=== PATIENT | male | born 1965 | race Caucasian/White ===

== ENCOUNTER 2024-06-02 09:15 | Day surgery (SDC) | payer BC ==
--- NOTE | 2024-06-01 17:25 | HP ---
HISTORY OF PRESENT ILLNESS: No prior colonoscopy. No bloody stools. No change in bowel habits noted. No pain. Family history negative for colon cancer. PAST MEDICAL HISTORY: Hypertension. HOME MEDICATIONS: Lisinopril. ALLERGIES: No known drug allergies. PAST SURGICAL HISTORY: Tonsillectomy and rotator cuff. Knee arthroplasty in the past. SOCIAL HISTORY: No smoking or alcohol abuse. FAMILY HISTORY: Diabetes, heart disease, bladder cancer. Negative for colon cancer. REVIEW OF SYSTEMS: Twelve systems reviewed. No chest pain or palpitations. Other systems negative or noncontributory as above and per preadmission questionnaire. PHYSICAL EXAMINATION: GENERAL: Height 6 feet. BMI of 31.19. HEENT: Sclerae anicteric. Extraocular movements intact. NECK: No JVD. CHEST: Equal excursion, nonlabored breathing. CARDIOVASCULAR: Regular rate and rhythm. ABDOMEN: Soft. SKIN: Dry. EXTREMITIES: No cyanosis or edema. NEUROLOGIC: Alert, moving all extremities symmetrically. PSYCHIATRIC: Appropriate mood and affect. RECTAL: Deferred until time of endoscopy exam. IMPRESSION: A 58-year-old needs screening colonoscopy. Feel he is a candidate. He was shown the risk sheet. Explained the procedure in detail but not limited to bleeding, infection, risk of bowel injury or perforation, risk of missed or nondiagnosis or incomplete exam possibly requiring barium enema or other studies or procedures, risk of anesthesia, sedation, risk of bowel prep, not limited to. Consent was obtained. We will proceed with screening colonoscopy as an outpatient under MAC anesthesia. Otherwise, continue medications for his hypertension.
[2024-06-02] MEDS ORDERED: Lactated Ringers 1,000 ML IV ONE (09:27)
[2024-06-02] MEDS: Lactated Ringers 1,000 ML IV SCH (09:31)
[2024-06-02 10:07] LABS: ANION GAP 19.3 MEQ/L (5-15); Calcium 8.9 mg/dL (8.4-10.2); Creatinine 1 0.9 mg/dL (0.66-1.25); EST GLOMERULAR FILTRATION RATE 98.4 ML/MIN; Potassium 4.4 mmol/L (3.5-5.1)
[2024-06-02] MEDS ORDERED: Xylocaine-Mpf 2% 5 Ml Vial ONE (11:56)
[2024-06-02] MEDS ORDERED: propofoL IV ONE ×2 (11:56→12:07)
[2024-06-02] MEDS ORDERED: Versed 2 MG/2 ML Injection ONE (11:56)
[2024-06-02 13:10] VITALS: BP 123/85; PULSE 73; RESP 18; TEMP 97; O2SAT 96
--- NOTE | 2024-06-03 11:34 | OP ---
SURGERY DATE/TIME: 06/02/2024 [id number] PREOPERATIVE DIAGNOSES: 1) Need for screening colonoscopy. 2) ASA class 2. POSTOPERATIVE DIAGNOSES: 1) Fair prep. 2) Diverticulosis. 3) Small rectal polyp. 4) Tortuous colon. 5) Withdrawal time was approximately 9 minutes. PROCEDURES: 1) Colonoscopy to the cecum. 2) Hot biopsy of small rectal polyp versus hyperplastic lesion. SURGEON: Ez Ervin MD BUSINESS EDITOR: Brad Suresh MS3 ESTIMATED BLOOD LOSS: Minimal. INDICATIONS: As noted above. The risks and benefits were explained in detail, not limited to. Consent obtained. DESCRIPTION OF PROCEDURE AND FINDINGS: The patient was taken to the operating room. MAC anesthesia was introduced. After official time-out and no disagreement with planned procedure, digital rectal exam did not reveal any rectal masses. He did have some small internal hemorrhoids. Videocolonoscope was inserted and passed up through the tortuous sigmoid, descending, transverse, and ascending colon. With external pressure and positioned on his back and 2 different staff members pushing on the abdomen, the scope was able to reach the cecum. Appendiceal orifice and valve well visualized and photo documented. The prep overall was fair. There was a little bit of liquidy, semisolid stool scattered throughout the colon. This was suction irrigated as clear as possible, just sightly limited exam for very small lesions. The scope was carefully withdrawn over the next 9 minutes. He did have some small- to medium-sized diverticulosis in the left colon. He did have small 2 mm early polyp versus hyperplastic lesion that was removed with hot biopsy forceps. Even with the hot biopsy forceps, there was a little bit of ooze at the base, but holding direct pressure on it for a few seconds and then irrigating it out, it had good hemostasis at the end of the procedure. The scope was withdrawn. Patient tolerated the procedure well. There were no immediate complications. Findings discussed with family out in the waiting area including the fact that he could pass a little bit of blood from the polypectomy and usually improves over a few days or a couple weeks. We will see him back in the office next week. He should avoid nonsteroidals or aspirin or thinners for the next week if okay with his medical physician.
== END 2024-06-02 13:05 | disposition home or self-care (01) ==
LOC: SDC 09:15
PROVIDERS: ATTEND Surgery
DX: Z12.11 Encounter for screening for malignant neoplasm of colon (principal); I10 Essential (primary) hypertension; K57.30 Diverticulosis of large intestine without perforation or abscess without bleeding; K62.1 Rectal polyp; K64.8 Other hemorrhoids
CPT/HCPCS: 36415; 80048; 93005; J2250; J2704